=== PATIENT | male | born 1990 | race Caucasian/White ===

== ENCOUNTER 2017-02-23 12:46 | Emergency (ER) | payer BC, OTHER ==
[~2017-02-23] VITALS: Ht 177.8 cm; Wt 79.5 kg
[2017-02-23 12:57] VITALS: BP 138/86
--- NOTE | 2017-02-23 13:43 | PHYS DOC ---
Text Text Discussed with Dr. Carpio at [facility]. Request transfer of patient for surgical intervention. Patient agreeable to transfer at this time. Patient is stable Reqested that patient have IV Zosyn - patient has a note regarding a penicillin allergy. He has never had it as his mother has anaphylaxis and father also has severe allergic reaction of unknown type (per patient). They have avoided giving him penicillin and at this time I will not provide penicillin and risk an allergic reaction. I will provide coverage with IV Rocephin and IV Flagyl at this time. Dr. Carpio can make changes if so requested. General Chief Complaint: ABDOMINAL PAIN Stated Complaint: ABDOMINAL PAIN Time Seen by MD: 13:05 Source: patient Exam Limitations: no limitations Problems: History of Present Illness Initial Comments Patient arrives ambulatory with girlfriend. He has had complaints of having all over abdominal pain for the past several days. He has a history of IBS - diarrhea variant - and over the past several days has been having 6-7 watery stools per day. Denies melena, hematochezia or bright red blood. He has been nauseated without emesis. He is not on any medications for this condition. He denies pain that radiates to the back. No rectal pain. Denies any genitourinary issues. He denies chest pain, shortness of breath or other breathing problems. He denies any history of alcoholic intake or drug use. He does drink a lot of [employer] energy drinks. Timing/Duration: 1 week, getting worse Severity: moderate Modifying Factors: worse with eating, worse with movement Allergies: Coded Allergies: Penicillins (Verified Allergy, Intermediate, 10/30/16) citalopram (Verified Allergy, Intermediate, 10/30/16) chest pain Past Medical History Medical History: other (Irritable bowel - diarrhea variant) Surgical History: no surgical history Psychosocial History: no pertinent psych hx Family History Significant Family History: no pertinent family hx Social History Smoker: non-smoker Alcohol: none Drugs: none Review of Systems Constitutional: no symptoms reported EENTM: no symptoms reported Respiratory: no symptoms reported Cardiovascular: no symptoms reported Gastrointestinal: abdominal pain, denies constipation, diarrhea, nausea, denies vomiting Genitourinary: no symptoms reported Musculoskeletal: no symptoms reported Skin: no symptoms reported Psychiatric/Neurological: no symptoms reported Hematologic/Lymphatic: no symptoms reported Immunological/Allergic: no symptoms reported All Other Systems: Reviewed and Negative Physical Exam General Appearance: WD/WN, no apparent distress Eyes: bilateral eye normal inspection, bilateral eye PERRL, bilateral eye EOMI Ear, Nose, Throat: hearing grossly normal, other (poor dentition with evidence of multiple dental caries. ) Neck: non-tender, full range of motion Respiratory: chest non-tender, lungs clear, normal breath sounds, no respiratory distress Cardiovascular: normal peripheral pulses, regular rate, rhythm, no edema, no murmur Gastrointestinal: soft, guarding, tenderness (right lower quadrant and left lower quadrant significnat reproducible tenderness. 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 Has a mild left shift present. CT results reveal a probably early appendicitis which is consistent with his examination./ This is discussed with patient. Surgery consult from [facility] is requested. KAREN BOUCHER MD Feb 23, 2017 13:43
[2017-02-23] MEDS ORDERED: IOHEXOL 300 MG/ML 75 ML VIAL. IV ONE (13:45)
[2017-02-23] MEDS ORDERED: IV NORMAL SALINE 1,000ML 1,000 ML IV ONE (13:45)
[2017-02-23] MEDS ORDERED: MORPHINE SULFATE 4 MG/ML DISP.SYRIN. IV ONE (13:45)
[2017-02-23] MEDS ORDERED: CONTRAST GIVEN MC PRN (13:45)
[2017-02-23] MEDS ORDERED: ONDANSETRON PF 4 MG/2 ML VIAL. IV ONE (13:45)
[2017-02-23 13:51] LABS: BASO % 1 % (0-3); EOS # 0.1 x10^3/uL (0.0-0.7); EOS % 1 % (0-3); HEMATOCRIT 49.3 % (39.0-53.0); HEMOGLOBIN 17.2 g/dL (13.0-17.5); LYMPH # 1.2 x10^3/uL (1.0-4.8); LYMPH % 18 % (24-48); MEAN CORPUSCULAR HEMOGLOBIN 32 pg (25-35); MEAN CORPUSCULAR HGB CONC 35 g/dL (31-37); MEAN CORPUSCULAR VOLUME 91 fL (79-100); MONO # 0.7 x10^3/uL (0.0-1.1); MONO % 10 % (0-9); NEUT # 5.1 x10^3uL (1.8-7.7); NEUT % 71 % (31-73); PLATELET COUNT 214 x10^3/uL (140-400); RED BLOOD COUNT 5.44 x10^6/uL (4.30-5.70); RED CELL DISTRIBUTION WIDTH 12.8 % (11.5-14.5); WHITE BLOOD COUNT 7.1 x10^3/uL (4.0-11.0)
[2017-02-23 13:59] LABS: ALBUMIN 4.4 g/dL (3.4-5.0); ALBUMIN/GLOBULIN RATIO 1.2 (1.0-1.7); CALCIUM 9.2 mg/dL (8.5-10.1); CREATININE 0.7 mg/dL (0.7-1.3); GFR 138.6; TOTAL BILIRUBIN 0.3 mg/dL (0.2-1.0)
[2017-02-23 14:08] LABS: AMORPHOUS SEDIMENT,UR PRESENT /HPF; BACTERIA,URINE 0 /HPF (0-FEW); BILIRUBIN,URINE NEG (NEG); CLARITY,URINE CLEAR; COLOR,URINE YELLOW; GLUCOSE,URINE NEG (NEG); NITRITE,URINE NEG (NEG); RBC,URINE 0 /HPF (0-2); UROBILINOGEN,URINE 0.2 mg/dL (0.2 mg/dL); WBC,URINE 0 /HPF (0-4)
--- NOTE | 2017-02-23 14:11 | RAD ---
Indication lower abdominal pain. Pain for a week. Worse today History of irritable bowel syndrome. Axial images through the abdomen and pelvis were obtained. No prior imaging is available. No oral contrast was administered. Approximately 75 cc of Omnipaque 300 was administered intravenously. The lung bases are clear. The liver and spleen appear unremarkable. The gallbladder is grossly normal. No adrenal or renal anomalies are seen. The pancreas appears unremarkable. Acute finding in the abdomen is not seen. The appendix is seen in the right lower quadrant. The appendiceal diameter is 9 to 10 mm which is, as an absolute value, enlarged. There are perhaps very minimal inflammatory changes surrounding the tip of the appendix. This finding (inflammatory change) is not certain. Early appendicitis is not excluded. Clinical correlation as to this possibility advised. An additional finding is not seen. IMPRESSION: The appendiceal diameter is dilated. There are perhaps minimal inflammatory changes at the tip of the appendix (this finding is not certain). Clinical correlation as to the possibility of early appendicitis advised.
[2017-02-23] MEDS ORDERED: cefTRIAXone SODIUM 1 GM VIAL IV ONE (15:04)
[2017-02-23] MEDS ORDERED: IV NORMAL SALINE 50ML 50 ML ONE (15:05)
== END 2017-02-23 15:45 | disposition short-term general hospital (02) ==
LOC: ER 12:46
DX: R10.31 Right lower quadrant pain (principal); R10.32 Left lower quadrant pain; K58.9 Irritable bowel syndrome, unspecified; Z88.0 Allergy status to penicillin; Z88.8 Allergy status to other drugs, medicaments and biological substances
CPT/HCPCS: 36415; 74177; 80053; 81001; 85027; 96361; 96365; 96367; 96375; 99285; J0696; J2270; J2405; J3490; Q9967; J7030